=== PATIENT | female | born 1965 | race Caucasian/White ===

== ENCOUNTER → 2017-10-05 15:46 | Outpatient (CLI) | payer BC, SELFPAY ==
--- NOTE | 2017-10-05 16:01 | XR_ITS ---
XR chest 2V Ordering Physician: Karthik Finn MD Patient Age: 51 years: Female HISTORY: ITS.REASON: NICOTINE DEPENDENCE cough TECHNIQUE: PA and lateral chest COMPARISON : 06/19/2017 FINDINGS PA and lateral chest is compared to previous study. There is no active disease no significant new findings. Subtle density medial right and left lung base most likely related to anterior fat pad similar appearance on some previous studies. Heart malena and mediastinal structures satisfactory chest wall and T-spine intact. IMPRESSION: Stable chest with nothing definitely acute. Lungs clear
[2017-10-05 16:09] LABS: Basophils # 0.1 K/mm3 (0-0.2); Basophils % 0.5 % (0.1-2.0); Eosinophils # 0.2 K/mm3 (0.0-0.4); Eosinophils % 1.4 % (0.1-12.0); Hematocrit 44.4 % (37.0-47.0); Lymphocytes # 2.9 K/mm3 (0.7-4.5); Lymphocytes % 25.6 K/mm3 (10-50); Mean Corpuscular HGB Conc 33.7 g/dL (31.8-35.4); Mean Corpuscular Hemoglobin 30.9 pg (27.0-31.2); Mean Corpuscular Volume 91.8 fl (81-99); Monocytes # 0.7 K/mm3 (0.1-1.0); Monocytes % 5.8 % (1.7-9.3); Neutrophils # 7.6 K/mm3 (1.8-7.8); Neutrophils % 66.6 % (37.0-80.0); Platelet Count 248 K/mm3 (142-424); Red Blood Count 4.84 M/mm3 (4.20-5.40); Red Cell Distribution Width 13.1 % (11.5-17.5); White Blood Count 11.4 K/mm3 (4.8-10.8)
[2017-10-05 17:54] LABS: Alanine Aminotransferase 18 U/L (12-78); Albumin Level 3.7 gm/dL (3.4-5.0); Alkaline Phosphatase 117 U/L (46-116); Anion Gap 10.9 mEq/L (5-15); Aspartate Amino Transferase 15 U/L (15-37); Bilirubin,Total 0.2 mg/dL (0.2-1.0); Blood Urea Nitrogen 7 mg/dL (7-18); Calcium 8.9 mg/dL (8.5-10.1); Carbon Dioxide 29 mmol/L (21.0-32.0); Chloride 105 mmol/L (98-107); Creatinine,Serum 0.74 mg/dL (0.55-1.02); Estimated Glomerular Filt Rate 83 ml/min (>60); GFR (African American) 100 ML/MIN (>60); Globulin 3.7 gm/dl (1.3-3.2); Glucose 91 mg/dL (74-106); Potassium 3.9 mmoL/L (3.5-5.1); Sodium 141 mmol/L (136-145); Total Protein,Serum 7.4 gm/dL (6.4-8.2)
== END ==
PROVIDERS: PCP Internal Medicine; Visit Provider Otolaryngology
DX: R49.0 Dysphonia (principal); Z72.0 Tobacco use; Z01.818 Encounter for other preprocedural examination
CPT/HCPCS: 36415; 71046; 80053; 85025; 93005

== ENCOUNTER 2017-10-08 06:21 | Day surgery (SDC) | payer BC, SELFPAY ==
[2017-10-06 16:57] VITALS: BMI 29.2
[2017-10-08] VITALS (9 sets, daily range): BP systolic 129–156; BP diastolic 61–88; PULSE 79–113; RESP 14–18; TEMP 36.1–36.4; O2SAT 85–97
--- NOTE | 2017-10-08 07:56 | P.PN_ITS ---
[facility] Anesthesia Checklist - Patient Identification Patient Identification: Arm Band, Verbal (Name & ) - Structural Data Admitted From: Home Planned Operative Procedure/s: laryngoscopy Consent for Planned Operative Procedure(s) Verified: Yes Verified Documents: Surgical Consent - Chart Verification Results Verified: CBC, BMP - Additional verifications Patient : No Anesthesia Reactions: No Hx Blood Transfusions: No Blood Transfusion Reaction: No Cephalosporin Allergy: No Previous Colonoscopy: No - Cardiovascular Assessment Heart Sounds: S1 & S2 Pulse Strength: Strong Pulse Rhythm: Regular Peripheral Edema: No - Airway Assessment C-Spine Mobility Assessed: Yes TMJ Mobility Assessed: Yes Dentition: Edentulous - Neurological Assessment Level of Consciousness: Awake, Alert, Appropriate Hx Seizures: No Numbness or tingling in extremities: No - Genitourinary Assessment Voided chief console operator to O.R.: Yes - Anesthesia Plan Anesthesia Risk discussed: Yes ASA Class: II Anesthesia Type: General [facility] Anesthesia HX I have reviewed the patient's past medical history: Yes Medical History: Reports:: Anxiety Denies:: Cancer, Diabetes Mellitus Type 1, Diabetes Mellitus Type 2, MRSA, Seizures Other Medical History: Reports: Hoarseness Other Surgeries: Yes: Colonoscopy, , Hysterectomy-Partial, Tubal Ligation Amputation: No Fractures: No *Family Hx:: Cancer, Coronary Artery Disease, Diabetes, Heart Attack, Hyperlipidemia, Hypertension
--- NOTE | 2017-10-08 09:30 | P.PN_ITS ---
[facility] Anesthesia Record Part I Intake, IV Amount: 1,000 Estimated blood loss (mL): 5 Urine output (mL): 0 Blood Pressure: 155/87 SaO2: 95 Pulse Rate: 100 Respiratory Rate: 16 Temperature: 97 F Patient is:: Drowsy, Mask O2, Stable Stable to PACU at:: 09:25
--- NOTE | 2017-10-08 09:30 | HMH.ANESII ---
[facility] Anesthesia Record Part II Discharge Time: 09:55 Destination: [facility] PACU nurse assessment reviewed?: Yes Patient Condition:: Good Anesthesia Complications:: None
--- NOTE | 2017-10-08 09:31 | P.PN_ITS ---
[facility] Anesthesia Record Part II Discharge Time: 09:55 Destination: [facility] PACU nurse assessment reviewed?: Yes Patient Condition:: Good Anesthesia Complications:: None
--- NOTE | 2017-10-08 13:53 | HMH.OPNOTE ---
Date of procedure: 10/08/17 Pre-op Diagnosis:: 1.Hoarseness 2.Polypoid laryngitis involving both vocal cords 3.Tobacco abuse Post-op diagnosis:: same Procedure performed:: Microlaryngoscopy with removal of right vocal cord polyps Surgeon:: Karthik Finn MD STRAPPING MACHINE TENDER:: Gerald Jordan [facility] [place] Anesthesia: GETA Estimated blood loss (mL): 0 Operative findings:: Patient under general anesthetic the SlimLine laryngoscope was used to examine the larynx and hypopharynx. There was extensive polypoid laryngitis involving both the right and the left vocal cords as well as the anterior commisure. Using the endoscopic dissecting instruments all of the polyps were removed from the right vocal cord and the anterior commisure. Bleeding was stopped with cottonoids soaked in adrenaline. Blood loss was less than 3 cc. The remainder of the endoscopic examination was noncontributory. She will need removal of the left vocal cord polyps at a later time. Patient tolerated bigger well and was sent to recovery in good general condition. Pathology: other (polyps) Condition: stable Disposition: PACU Complications:: none
--- NOTE | 2017-10-08 13:58 | P.OP_ITS ---
Date of procedure: 10/08/17 Pre-op Diagnosis:: 1.Hoarseness 2.Polypoid laryngitis involving both vocal cords 3.Tobacco abuse Post-op diagnosis:: same Procedure performed:: Microlaryngoscopy with removal of right vocal cord polyps Surgeon:: Karthik Finn MD CAFETERIA COUNTER ATTENDANT:: Gerald Jordan [facility] Anesthesia: GETA Estimated blood loss (mL): 0 Operative findings:: Patient under general anesthetic the SlimLine laryngoscope was used to examine the larynx and hypopharynx. There was extensive polypoid laryngitis involving both the right and the left vocal cords as well as the anterior commisure. Using the endoscopic dissecting instruments all of the polyps were removed from the right vocal cord and the anterior commisure. Bleeding was stopped with cottonoids soaked in adrenaline. Blood loss was less than 3 cc. The remainder of the endoscopic examination was noncontributory. She will need removal of the left vocal cord polyps at a later time. Patient tolerated bigger well and was sent to recovery in good general condition. Pathology: other (polyps) Condition: stable Disposition: PACU Complications:: none
--- NOTE | 2017-10-08 15:25 | PC.NURSE ---
noted that occassional fine crackles heard in pt's right anterior lung, left anterior lung sounds clear
== END 2017-10-08 10:46 | disposition home or self-care (01) ==
LOC: OR 06:23
PROVIDERS: PCP Internal Medicine; Visit Provider Otolaryngology
PROC: 0CJS8ZZ Inspection of Larynx, Via Natural or Artificial Opening Endoscopic (ICD-10-PCS; CPT 31576; principal; 2017-10-08 08:00)
DX: J38.1 Polyp of vocal cord and larynx (principal)
CPT/HCPCS: 31576; 96374; 96375; J2405

== ENCOUNTER → 2018-05-21 14:15 | Outpatient (CLI) | payer BC, SELFPAY ==
--- NOTE | 2018-05-21 14:21 | XR_ITS ---
XR chest 2V HISTORY: ITS.REASON: CHEST PAIN ORDERING PHYSICIAN: Sukumar Phan PATIENT AGE: 52 years COMPARISON: 10/05/2017 FINDINGS: The cardiomediastinal silhouette and pulmonary vascularity are within normal limits. The lungs are clear without infiltrates, suspicious nodules, or pleural effusions. No acute bony abnormalities. IMPRESSION: Negative chest, no acute finding
== END ==
PROVIDERS: PCP Internal Medicine; Visit Provider Internal Medicine
DX: R07.9 Chest pain, unspecified (principal)
CPT/HCPCS: 71046; 93005

== ENCOUNTER → 2018-07-27 14:22 | Outpatient (POV) | payer BC, SELFPAY ==
[2018-07-27 16:26] LABS: Basophils % 0.3 % (0.1-2.0); Eosinophils % 0.1 % (0.1-12.0); Hematocrit 46.3 % (37.0-47.0); Lymphocytes % 8.4 % (10-50); Mean Corpuscular HGB Conc 32.3 g/dL (31.8-35.4); Mean Corpuscular Volume 92.8 fl (81-99); Mean Platelet Volume 8.6 fl (7.4-10.4); Monocytes # 0.2 K/mm3 (0.1-1.0); Monocytes % 1.5 % (1.7-9.3); Neutrophils # 10.6 K/mm3 (1.8-7.8); Neutrophils % 89.7 % (37.0-80.0); Platelet Count 264 K/mm3 (142-424); Red Blood Count 4.99 M/mm3 (4.20-5.40); Red Cell Distribution Width 13.7 % (11.5-17.5); White Blood Count 11.8 K/mm3 (4.8-10.8)
[2018-07-27 16:34] LABS: MANUAL DIFFERENTIAL MANUAL DIFFERENTIAL (MANUAL DIFF)
[2018-07-27 16:57] LABS: Alanine Aminotransferase 18 U/L (12-78); Albumin Level 3.7 gm/dL (3.4-5.0); Albumin/Globulin Ratio 0.9 (1.1-1.8); Alkaline Phosphatase 133 U/L (46-116); Anion Gap 14.3 mEq/L (5-15); Aspartate Amino Transferase 12 U/L (15-37); Bilirubin,Total 0.1 mg/dL (0.2-1.0); Blood Urea Nitrogen 12 mg/dL (7-18); Calcium 9.1 mg/dL (8.5-10.1); Carbon Dioxide 25 mmol/L (21.0-32.0); Chloride 106 mmol/L (98-107); Chol/HDL Ratio 5.1 (1-3.5); Cholesterol 192 mg/dL (140-200); Estimated Glomerular Filt Rate 75 ml/min (>60); GFR (African American) 91 ML/MIN (>60); Globulin 3.9 gm/dl (1.3-3.2); Glucose 119 mg/dL (74-106); HDL Cholesterol 38 mg/dL (29-89); LDL Cholesterol 127 mg/dL (0-130); Potassium 4.3 mmoL/L (3.5-5.1); Sodium 141 mmol/L (136-145); Total Protein,Serum 7.6 gm/dL (6.4-8.2); Triglycerides 137 mg/dL (30-200); VLDL Cholesterol 27 mg/dL (0-40)
[2018-07-27 17:04] LABS: Lymphocytes % 15 % (10-50); Monocytes % 1 % (2-9); Neutrophils % 83 % (42-76); Total Cells Counted 100
[2018-07-27 17:05] LABS: Platelet Estimate Normal; RBC Morphology Normal
[2018-07-29 08:32] LABS: Hep A Ab, IgM Negative (Negative); Hepatitis B Core Antibody IgM Negative (Negative); Hepatitis B Surface Antigen Negative (Negative)
[2018-07-30 07:02] LABS: Hepatitis C Antibody <0.1 s/co ratio (0.0-0.9)
[2018-07-30 07:06] LABS: QuantiFERON-TB Gold Plus Negative (Negative)
== END ==
PROVIDERS: Visit Provider Dermatology
DX: L40.0 Psoriasis vulgaris (principal); Z79.899 Other long term (current) drug therapy
CPT/HCPCS: 36415; 80053; 80061; 80074; 85007; 85025; 86480

== ENCOUNTER → 2021-02-06 09:55 | Outpatient (CLI) | payer BC, SELFPAY | PROVIDERS: PCP Internal Medicine; Visit Provider Internal Medicine | DX: R06.00 Dyspnea, unspecified (principal) | CPT/HCPCS: 94060 ==

== ENCOUNTER 2021-09-29 12:07 | Emergency (ER) | payer OTHER, SELFPAY ==
--- NOTE | 2021-09-29 15:17 | HMH.EDUTC ---
[facility] [place] Clinical Impression: Neck pain, Radiculopathy affecting upper extremity, Skin sensation disturbance Shoulder pain Qualifiers: Chronicity: acute Laterality: bilateral Qualified Code(s): M25.511 - Pain in right shoulder Disposition: Home, Self-Care Condition on Discharge: Good Instructions: DI for Cervical Radiculopathy, DI for Shoulder Pain Additional Instructions: Go home and rest. It would be best if you rested tomorrow too. No heavy lifting. No twisting. Take the oral medications as directed. The muscle relaxer (cyclobenzaprine--Flexeril) will make you drowsy, so don't drive or operate heavy machinery after taking it. Don't start the oral steroids (medrol dose pack) until tomorrow, since you had the shots in here today. Follow up with your regular doctor. I put in referral to Dr. Merrill also. An orthopedic doctor can help treat pinched nerves and help track down exactly what is pinched. GO TO THE ER FOR ANY WORSENING SYMPTOMS OR CONCERN, ESPECIALLY BOWEL OR BLADDER ISSUES, SADDLE AREA NUMBNESS, FEVER, ETC Prescriptions: Cyclobenzaprine HCl [Cyclobenzaprine 10mg Tab] 10 mg PO BIDP PRN #20 tab PRN Reason: Muscle Spasm Transmission Status: Received by [facility] #[id number] methylPREDNISolone [Medrol] 4 mg PO DIRECTED 6 Days #21 packet Transmission Status: Received by [facility] #[id number] Referrals: Sukumar Phan [Primary Care Provider] - Rinku Merrill MD [Staff Physician] - Time of Disposition: 15:47 Medical Decision Making - Medical Records Medical records reviewed: No: I reviewed the patient's medical records. - Waldemar Inquiry Pt receiving controlled substance: No Vital Signs: 09/29/21 15:18 09/29/21 16:08 Temperature 98.3 F 98.3 F Temperature Source Oral Pulse Rate 90 Pulse Rate [Left] 90 Respiratory Rate 18 18 Blood Pressure 182/86 H Blood Pressure [Right Arm] 182/86 H Blood Pressure Mean [Right Arm] 118 02 Sat by Pulse Oximetry 96 - Lab Data Lab results reviewed: Yes: I reviewed the patient's lab results. Orders (Tests/Meds): ED MEDICATIONS Discontinued Medications Generic Name Dose Route Start Last Admin Trade Name Freq PRN Reason Stop Dose Admin Ketorolac Tromethamine 60 mg 09/29/21 15:44 09/29/21 16:03 Ketorolac 60mg/2ml Vial IM 09/29/21 15:45 60 mg ONCE ONE Administration Methylprednisolone Sodium Succinate 125 mg 09/29/21 15:44 09/29/21 16:03 Methylprednisolone Sod Succ 125mg Vial IM 09/29/21 15:45 125 mg ONCE ONE Administration [facility] [place] HPI - General Stated complaint: pain/numbness lt arm, NO CP Time Seen by Provider: 09/29/21 15:17 - History of Present Illness Provider Complaint: She c/o posterior neck pain and left shoulder pain. The pain radiates down her left arm at times. She is also having intermitent numbness of a certain area of her left palm and thumb. She denies any chest pain, cardiac history, or the chance that this could be related to her heart. She refuses any cardiac work up. She states that this has been a chronic issue that has recently worsened. She denies any recent injury, falls, mva or other trauma. - Related Data Previous Rx's Medication Instructions Recorded doxycycline hyclate 100 mg capsule 100 mg PO BID 10 Days #20 cap 07/26/18 methylprednisolone 4 mg tablets in See Rx Instructions PO PER PKG DIR 07/26/18 a dose pack #21 tab Cyclobenzaprine HCl [Flexeril 10mg 10 mg PO TID PRN #15 tablet 12/02/18 tablet] Etodolac [Etodolac 200mg Cap] 200 mg PO Q6HP PRN #20 cap 12/02/18 Cyclobenzaprine HCl 10 mg PO BIDP PRN #20 tab 09/29/21 [Cyclobenzaprine 10mg Tab] methylPREDNISolone [Medrol] 4 mg PO DIRECTED 6 Days #21 09/29/21 packet Allergies Allergy/AdvReac Type Severity Reaction Status Date / Time promethazine [From PHENERGAN] Allergy Intermediate I-RASH Verified 12/02/18 15:04 [facility] History - Hepatitis A Screen Attestation statement:
[2021-09-29 15:18] VITALS: BP 182/86; PULSE 90; RESP 18; TEMP 36.8; O2SAT 96; BMI 30.2
[2021-09-29 16:08] VITALS: BP 182/86; PULSE 90; RESP 18; TEMP 36.8
== END 2021-09-29 16:09 | disposition home or self-care (01) ==
PROVIDERS: Emergency Provider Nurse Practitioner Family; PCP Internal Medicine
DX: M54.12 Radiculopathy, cervical region (principal); M25.511 Pain in right shoulder; F41.9 Anxiety disorder, unspecified; F17.210 Nicotine dependence, cigarettes, uncomplicated
CPT/HCPCS: 96372; 99202; G0463

== ENCOUNTER → 2021-12-09 15:17 | Outpatient (CLI) | payer OTHER, SELFPAY ==
--- NOTE | 2021-12-09 15:22 | XR_ITS ---
FINAL REPORT CLINICAL HISTORY: NECK PAIN RADIATING TO LEFT ARM/THUMB FINDINGS: CERVICAL SPINE SERIES Findings: 5 views demonstrate no fracture or subluxation. The prevertebral soft tissues are unremarkable. There are mild to moderate degenerative changes. There is hard disc osteophyte complexes at C4-5 and C5-6 with moderate neuroforaminal narrowing at C4-5 and C5-6. IMPRESSION: Degenerative changes with no acute bony abnormality.. Reviewed, Interpreted and Dictated by Alexis Tapia III, MD Transcribed by Katie Mortensen Authenticated by Alexis Tapia III, MD on 12/09/2021 04:41:[address] [facility]
== END ==
PROVIDERS: PCP Internal Medicine; Visit Provider Internal Medicine
DX: M54.2 Cervicalgia (principal); M79.602 Pain in left arm; M79.645 Pain in left finger(s)
CPT/HCPCS: 72050

== ENCOUNTER 2024-07-02 10:16 | Outpatient (CLI) | payer OTHER, SELFPAY ==
[2024-07-02 10:40] LABS: Basophils # 0.1 K/mm3 (0-0.2); Eosinophils # 0.2 K/mm3 (0.0-0.4); Eosinophils % 1.7 % (0.1-12.0); Hematocrit 44.6 % (37.0-47.0); Hemoglobin 15.1 g/dL (12.2-16.2); Lymphocytes # 2.6 K/mm3 (0.7-4.5); Lymphocytes % 25.8 % (10-50); Mean Corpuscular HGB Conc 33.9 g/dL (31.8-35.4); Mean Corpuscular Hemoglobin 30.6 pg (27.0-31.2); Mean Corpuscular Volume 90.3 fl (81-99); Mean Platelet Volume 8.3 fl (7.4-10.4); Monocytes # 0.7 K/mm3 (0.1-1.0); Neutrophils # 6.4 K/mm3 (1.8-7.8); Neutrophils % 64.5 % (37.0-80.0); Platelet Count 248 K/mm3 (142-424); Red Blood Count 4.94 M/mm3 (4.20-5.40); Red Cell Distribution Width 14.5 % (11.5-17.5); White Blood Count 9.9 K/mm3 (4.8-10.8)
[2024-07-02 11:27] LABS: Ferritin 12.5 ng/ml (11.1-264)
[2024-07-02 11:44] LABS: 25-OH Vitamin D, Total 40.8 ng/mL (30-100); Alanine Aminotransferase 17 U/L (12-78); Albumin Level 4.1 g/dl (3.5-5.0); Albumin/Globulin Ratio 1.4 (1.1-1.8); Alkaline Phosphatase 96 U/L (38-126); Aspartate Amino Transferase 27 U/L (14-36); Bilirubin,Total 0.5 mg/dl (0.2-1.3); Blood Urea Nitrogen 10 mg/dl (7-17); Calcium 9.3 mg/dl (8.4-10.2); Carbon Dioxide 27 mmol/L (22.0-30.0); Chloride 109 mmol/L (98-107); Chol/HDL Ratio 5.4 (1-3.5); Cholesterol 194 mg/dl (140-200); Estimated Glomerular Filt Rate 74 ml/min (>60); GFR (African American) 89 ML/MIN (>60); Globulin 2.9 g/dL (1.3-3.2); Glucose 115 mg/dl (74-100); HDL Cholesterol 36 mg/dl (40-60); Magnesium 1.9 mg/dl (1.6-2.3); Sodium 144 mmol/L (136-145); Triglycerides 189 mg/dl (30-150); VLDL Cholesterol 38 mg/dL (0-40)
[2024-07-02 11:55] LABS: Direct LDL Cholesterol 123.34 mg/dL (100-129)
[2024-07-02 12:14] LABS: Thyroid Stimulating Hormone 1.82 uIU/mL (0.465-4.68)
[2024-07-02 12:33] LABS: Vitamin B12 423 pg/mL (239-931)
[2024-07-04 12:10] LABS: Triiodothyronine (T3) Free 3.3 pg/mL (2.0-4.4)
== END 2024-07-02 23:59 | disposition home or self-care (01) ==
LOC: LAB 10:17
PROVIDERS: PCP Nurse Practitioner Family; Visit Provider Nurse Practitioner Family
DX: G47.00 Insomnia, unspecified (principal); Z13.220 Encounter for screening for lipoid disorders; Z13.21 Encounter for screening for nutritional disorder; Z13.29 Encounter for screening for other suspected endocrine disorder
CPT/HCPCS: 36415; 80050; 80053; 80061; 82306; 82607; 82728; 83735; 84443; 84481; 85025

== ENCOUNTER 2024-07-13 09:02 | Outpatient (CLI) | payer OTHER, SELFPAY ==
--- NOTE | 2024-07-13 09:02 | CT_ITS ---
FINAL REPORT TECHNIQUE: Thin section axial images were obtained from the lung apices to the upper abdomen by computed tomography. Reformatted images were obtained and reviewed. This study was performed with techniques to keep radiation doses al low as reasonably achievable (ALARA). Individualized dose reduction techniques using automated exposure control or adjustment of mA and/or kV according to the patient's size were employed. CLINICAL HISTORY: .CURRENT SMOKER 1PPD X 46 YEARS COMPARISON: None FINDINGS: CHEST CT LOW DOSE 58-year-old female, current smoker, 10-qvag-bflk history. CTDI vol (mGy): 2.9 DLP (mGy-cm): 100.29 There is no axillary adenopathy. There are diffuse small scattered mediastinal nodes, nonspecific. The heart is normal in size. There is no pericardial or pleural effusion. Lung window images demonstrate no suspicious infiltrate or nodule. Limited images of the upper abdomen demonstrate a calcified gallstone and a contracted gallbladder.. IMPRESSION: Lung-RADS category 1S, the S designation for the calcified gallstone and a contracted gallbladder. Recommend 12 month follow up low dose chest CT. Authenticated and ERN
== END 2024-07-13 23:59 | disposition home or self-care (01) ==
LOC: RAD 09:02
PROVIDERS: PCP Nurse Practitioner Family; Visit Provider Nurse Practitioner Family
DX: Z12.2 Encounter for screening for malignant neoplasm of respiratory organs (principal); F17.210 Nicotine dependence, cigarettes, uncomplicated
CPT/HCPCS: 71271

== ENCOUNTER 2024-08-03 08:09 | Outpatient (CLI) | payer OTHER, SELFPAY ==
--- NOTE | 2024-08-03 08:09 | US_ITS ---
FINAL REPORT CLINICAL HISTORY: RUQ abd pain, gallstone FINDINGS: RIGHT UPPER QUADRANT ULTRASOUND Technique: Ultrasound images of the right upper quadrant were obtained. There is fatty infiltration of the liver. There are 2 large echogenic shadowing stones in the gallbladder measuring up to 1.9 cm. Common duct is normal. The right kidney is unremarkable. IMPRESSION: Cholelithiasis. Fatty liver. Reviewed, Interpreted and Dictated by Nick Malhotra MD Transcribed by Khalida Aceves Authenticated and [facility]
== END 2024-08-03 23:59 | disposition home or self-care (01) ==
LOC: RAD 08:09
PROVIDERS: PCP Nurse Practitioner Family; Visit Provider Nurse Practitioner Family
DX: K80.20 Calculus of gallbladder without cholecystitis without obstruction (principal); R10.11 Right upper quadrant pain
CPT/HCPCS: 76705

== ENCOUNTER 2024-08-10 12:26 | Outpatient (CLI) | payer OTHER, SELFPAY ==
--- NOTE | 2024-08-10 12:56 | ECG_ITS ---
APPROVED REPORT Exam: Resting ECG HR:92 bpm ECG Measurements Heart Rate 92 AXES HI 155 P 54 QRSd 77 QRS 3 QT 354 T 38 QTc 403 Conclusion SINUS RHYTHM NORMAL ECG UNCONFIRMED REPORT Electronically signed by : Lloyd Carmen MD 08/12/2024 14:12:51
[2024-08-10 13:02] VITALS: BMI 32.4
[2024-08-10 13:25] LABS: Basophils # 0.1 K/mm3 (0-0.2); Basophils % 1.1 % (0.1-2.0); Eosinophils # 0.2 K/mm3 (0.0-0.4); Eosinophils % 1.6 % (0.1-12.0); Hematocrit 43.8 % (37.0-47.0); Hemoglobin 14.8 g/dL (12.2-16.2); Lymphocytes # 2.5 K/mm3 (0.7-4.5); Lymphocytes % 23.9 % (10-50); Mean Corpuscular HGB Conc 33.8 g/dL (31.8-35.4); Mean Corpuscular Hemoglobin 30.7 pg (27.0-31.2); Mean Platelet Volume 8.2 fl (7.4-10.4); Monocytes # 0.6 K/mm3 (0.1-1.0); Monocytes % 5.8 % (1.7-9.3); Neutrophils % 67.7 % (37.0-80.0); Platelet Count 230 K/mm3 (142-424); Red Blood Count 4.81 M/mm3 (4.20-5.40); Red Cell Distribution Width 14.6 % (11.5-17.5); White Blood Count 10.4 K/mm3 (4.8-10.8)
[2024-08-10 13:45] LABS: Chloride 108 mmol/L (98-107); Potassium 3.8 mmoL/L (3.5-5.1); Sodium 139 mmol/L (136-145)
[2024-08-10 13:48] LABS: Anion Gap 10.8 mEq/L (5-15); Blood Urea Nitrogen 11 mg/dl (7-17); Carbon Dioxide 24 mmol/L (22.0-30.0); Creatinine Clearance Estimated 73 mL/min (50-200); Estimated Glomerular Filt Rate 64 ml/min (>60); GFR (African American) 78 ML/MIN (>60)
[2024-08-10 13:49] LABS: Calcium 8.9 mg/dl (8.4-10.2); Glucose 97 mg/dl (74-100)
== END 2024-08-10 23:59 | disposition home or self-care (01) ==
LOC: PREOP 12:27
PROVIDERS: Nurse Anesthetist, Certified Registered; PCP Nurse Practitioner Family; Visit Provider Surgery
DX: Z01.810 Encounter for preprocedural cardiovascular examination (principal)
CPT/HCPCS: 80048; 85025; 93005

== ENCOUNTER 2024-08-18 08:58 | Day surgery (SDC) | payer OTHER, SELFPAY ==
[2024-08-10 12:58] VITALS: BMI 32.4
[2024-08-18] VITALS (10 sets, daily range): BP systolic 117–156; BP diastolic 62–86; PULSE 83–106; RESP 14–20; TEMP 36.2–40; O2SAT 92–96
[2024-08-18] MEDS: 0.9 % SODIUM CHLORIDE 1000ML 1,000 ML 25 ML IV (09:17)
--- NOTE | 2024-08-18 09:50 | EXP.ANES.CKL ---
[facility] Disclaimer: The information contained in this section may have been updated after the patient was seen, as this information can be updated by other users. Medical History COPD (chronic obstructive pulmonary disease) HTN (hypertension) Surgical History (Updated 08/18/24 @ 09:20 by Nahun Louis RN) History of hysterectomy History of History of colonoscopy Family History Other Family history of cancer Family history of diabetes mellitus Family history of heart disease Family history of hypertension Social History Smoking Status: Current every day smoker tobacco type: cigarettes packs per day: 1 alcohol intake: never substance use type: denies use current occupational status: unemployed Travel in the last 8 weeks: None [facility] Anesthesia Checklist Patient Identification Patient Identification: Arm Band and Family Structural Data Admitted From: Home Planned Operative Procedure/s: Lap Cleo. Consent for Planned Operative Procedure(s) Verified: Yes Verified Documents: Surgical Consent and History and Physical NPO Status Verified Time NPO: 00:00 Additional verifications Patient : No Anesthesia Reactions: No Hx Blood Transfusions: No Blood Transfusion Reaction: No Cephalosporin Allergy: No Previous Colonoscopy: Yes Airway Assessment Mallampati Score:: Class II C-Spine Mobility Assessed: Yes TMJ Mobility Assessed: Yes Dentition: Edentulous Neurological Assessment Level of Consciousness: Awake, Alert, Appropriate and Follows Commands Hx Seizures: No Numbness or tingling in extremities: No Anesthesia Plan Anesthesia Risk discussed: Yes ASA Class: II Anesthesia Type: General Preoperative Comments Pre-Operative Comments: Hypertension. COPD-Inhaler. Allergic to Phenergan.
[2024-08-18] MEDS: CEFAZOLIN SODIUM 2 GM in 0.9 % SODIUM CHLORIDE 100 ML IV (10:44)
[2024-08-18] MEDS: LIDOCAINE 1% 20ML MDV 20 ML (11:02)
--- NOTE | 2024-08-18 11:39 | P.OP_ITS ---
Date of procedure: 08/18/24 Pre-op Diagnosis:: Chronic calculus cholecystitis Post-op Diagnosis:: Same Procedure performed:: Laparoscopic cholecystectomy Surgeon:: Delfino Cole MD TAKE OUT WAITRESS:: Brennan Peterson Anesthesia: GETKal Estimated blood loss (mL): 15 Operative findings:: Infundibular thickening 2 large gallstones consistent with radiographic findings Operative note:: After informed consent was obtained, the patient was taken to the operating room and placed in the supine position. General anesthesia was induced and the abdomen was prepped and draped in a sterile fashion. After infiltration with local anesthetic an infraumbilical incision was made. A Veress needle was placed in position. The abdomen was insufflated. A 5 mm optical trocar was placed in position. Under direct visualization, a 12 mm trocar was placed in the subxiphoid position and 2 additional 5 mm trocars were placed in the right upper quadrant. The gallbladder was elevated up and over the liver margin. The tissue around the cystic duct was carefully dissected. 3 clips were placed proximally and the duct was transected with harmonic cj. Harmonic cj were then utilized to dissect the gallbladder away from the liver margin with careful attention to the control of the cystic artery. The gallbladder was placed in a retrieval bag and removed through the subxiphoid trocar site. The right upper quadrant was thoroughly irrigated. No active bleeding or bile leak was noted. Fascia at the subxiphoid trocar site was reapproximated utilizing the NeoClose device. The remaining trocars were removed. All wounds were irrig ated and skin was closed with 4-0 Monocryl in a subcuticular fashion. Steri- Strips were applied. The patient's anesthetic agents were reversed and extubation was completed prior to transfer to recovery in stable condition. Condition: stable Disposition: PACU Specimens:: Gallbladder and contents Complications:: No immediate
--- NOTE | 2024-08-18 11:55 | EXP.ANES.I ---
[facility] Anesthesia Record Part I Anesthesia Record I Intake, IV Amount: 550 Hydration: Adequate Estimated blood loss (mL): 15 Urine output (mL): 0 Blood Products used (#): none Blood Pressure: 156/75 SaO2: 94 Pulse Rate: 102 Airway Patency: Patent Respiratory Rate: 14 Temperature: 97.8 F Patient is:: Drowsy and Stable Stable to PACU at:: 11:48
[2024-08-18] MEDS: HYDROMORPHONE 2MG/ML SYRINGE 0.5 MG IV ×4 (11:57→12:12)
[2024-08-18] MEDS: MEPERIDINE 25MG/ML 1ML SYRINGE 12.5 MG IV ×2 (12:12→12:17)
--- NOTE | 2024-08-19 12:13 | EXP.ANES.II ---
[facility] Anesthesia Record Part II Anesthesia Record Part II Discharge Time: 12:18 Destination: [facility] (OP Surgery) PACU nurse assessment reviewed?: Yes Patient Condition:: Good Anesthesia Complications:: None Swallowing reflex intact?: Yes Airway Patency: Patent Cyanosis?: No Blood Pressure: 131/80 SaO2: 94 Respiratory Rate: 16 Pulse Rate: 89 Temperature: 97.8 F Mental Status: Alert & Oriented Pain level:: 2 Nausea and/or vomitting:: None Intake, IV Amount: 0 Hydration: Adequate
[2024-08-19 12:14] VITALS: BP 131/80; PULSE 89; RESP 16; TEMP 36.6; O2SAT 94
== END 2024-08-18 12:55 | disposition home or self-care (01) ==
PROVIDERS: PCP Nurse Practitioner Family; Visit Provider Surgery
PROC: 0FT44ZZ Resection of Gallbladder, Percutaneous Endoscopic Approach (ICD-10-PCS; CPT 47562; principal; 2024-08-18 10:30)
DX: K80.10 Calculus of gallbladder with chronic cholecystitis without obstruction (principal)
CPT/HCPCS: 47562; 96374; J3490; J0690; J1100; J1171; J2175; J2250; J2405; J3010; J7030

== ENCOUNTER 2024-08-30 16:11 | Outpatient (CLI) | payer OTHER, SELFPAY ==
[2024-08-30 14:47] LABS: Basophils # 0.1 K/mm3 (0-0.2); Basophils % 1.1 % (0.1-2.0); Eosinophils # 1.3 K/mm3 (0.0-0.4); Eosinophils % 13.3 % (0.1-12.0); Hematocrit 45.1 % (37.0-47.0); Hemoglobin 14.9 g/dL (12.2-16.2); Lymphocytes # 0.1 K/mm3 (0.7-4.5); Lymphocytes % 1.4 % (10-50); Mean Corpuscular HGB Conc 32.9 g/dL (31.8-35.4); Mean Corpuscular Hemoglobin 30.8 pg (27.0-31.2); Mean Corpuscular Volume 93.6 fl (81-99); Mean Platelet Volume 9.3 fl (7.4-10.4); Monocytes # 1.3 K/mm3 (0.1-1.0); Monocytes % 14.2 % (1.7-9.3); Neutrophils # 6.6 K/mm3 (1.8-7.8); Platelet Count 257 K/mm3 (142-424); Red Blood Count 4.82 M/mm3 (4.20-5.40); Red Cell Distribution Width 14.3 % (11.5-17.5); White Blood Count 9.4 K/mm3 (4.8-10.8)
[2024-08-30 16:07] LABS: Ferritin 20.2 ng/ml (11.1-264)
== END 2024-08-30 23:59 | disposition home or self-care (01) ==
LOC: LAB.DROPOF 16:12
PROVIDERS: PCP Nurse Practitioner Family; Visit Provider Nurse Practitioner Family
DX: D50.9 Iron deficiency anemia, unspecified (principal)
CPT/HCPCS: 82728; 85025

== ENCOUNTER 2024-09-23 14:36 | Outpatient (CLI) | payer OTHER, SELFPAY ==
[2024-09-23 14:53] LABS: Basophils # 0.1 K/mm3 (0-0.2); Basophils % 0.7 % (0.1-2.0); Eosinophils # 0.1 K/mm3 (0.0-0.4); Eosinophils % 1.4 % (0.1-12.0); Hematocrit 45.9 % (37.0-47.0); Hemoglobin 15.1 g/dL (12.2-16.2); Lymphocytes # 2.3 K/mm3 (0.7-4.5); Lymphocytes % 23.8 % (10-50); Mean Corpuscular HGB Conc 32.9 g/dL (31.8-35.4); Mean Corpuscular Hemoglobin 30.5 pg (27.0-31.2); Mean Corpuscular Volume 92.7 fl (81-99); Mean Platelet Volume 11.1 fl (7.4-10.4); Monocytes # 0.8 K/mm3 (0.1-1.0); Monocytes % 8.1 % (1.7-9.3); Neutrophils # 6.5 K/mm3 (1.8-7.8); Neutrophils % 65.6 % (37.0-80.0); Platelet Count 283 K/mm3 (142-424); Red Blood Count 4.95 M/mm3 (4.20-5.40); Red Cell Distribution Width 13.8 % (11.5-17.5); White Blood Count 9.9 K/mm3 (4.8-10.8)
== END 2024-09-23 23:59 | disposition home or self-care (01) ==
LOC: LAB.DROPOF 14:36
PROVIDERS: PCP Nurse Practitioner Family; Visit Provider Nurse Practitioner Family
DX: R53.83 Other fatigue (principal); I10 Essential (primary) hypertension
CPT/HCPCS: 85025

== ENCOUNTER 2025-08-29 16:08 | Outpatient (CLI) | payer SELFPAY ==
[2025-08-29 16:45] LABS: Coronavirus 19, PCR Not Detected (NotDetected); Influenza B, PCR Not Detected (NotDetected)
[2025-08-29 20:39] LABS: Influenza A, PCR Detected (NotDetected)
--- OUTSIDE RECORDS SUMMARY | 2025-08-30 19:01 | XMS_ITS ---
Author Organization Unknown ENCOUNTERS Encounter Performer Location Date Diagnosis Diagnosis Status Emergency [facility] [address] [facility] [address] [place] [address] [id number] [place] *Note: Encounters from your own facility or health system may be excluded. Allergies, Adverse Reactions, Alerts Allergen Type Severity Identification Date promethazine drug allergy 3 [id number] Medications Name Date Quantity Days Supplied [facility] Number
== END 2025-08-29 23:59 | disposition home or self-care (01) ==
LOC: LAB.DROPOF 08-30 18:59
PROVIDERS: PCP Nurse Practitioner Family; Visit Provider Nurse Practitioner Family
DX: R06.02 Shortness of breath (principal)
CPT/HCPCS: 87631